=== PATIENT | female | born 2005 | race Caucasian/White ===

== ENCOUNTER 2025-08-07 20:39 | Emergency (ER) | payer BC ==
[2025-08-07] MEDS ORDERED: Sodium Chloride 0.9% 10 ML Syringe FLUSH PRN (21:11)
[2025-08-07 21:28] LABS: MEAN PLATELET VOLUME 11.1 fl (9.4-12.3); NRBC ABSOLUTE 0.00 (0.00-0.02); NRBC PERCENT 0.0 % (0.0-0.2); PLATELET COUNT,PLT 195 K/mm3 (150-400); RED BLOOD CELL COUNT 4.39 M/mm3 (4.10-5.30); WHITE BLOOD CELL COUNT,WBC 10.59 K/mm3 (3.9-11.3)
[2025-08-07 23:12] LABS: APPEARANCE,URINE CLEAR (Clear); GLUCOSE,URINE NEGATIVE (Negative); OCCULT BLOOD,URINE TRACE-INTACT (Negative)
[2025-08-07 23:24] LABS: SQUAMOUS EPITHELIAL CELLS,UR 0-5 /hpf (0-5)
== END 2025-08-07 23:50 | disposition home or self-care (01) ==
LOC: JD.ED 20:39
DX: O20.9 Hemorrhage in early pregnancy, unspecified (principal); Z3A.08 8 weeks gestation of pregnancy
CPT/HCPCS: 36415; 76817; 76817-26; 81001; 84702; 85027; 86900; 86901; 87086; 99283; 99284